=== PATIENT | male | born 2000 | race Caucasian/White ===

== ENCOUNTER 2024-02-29 13:17 | Emergency (ER) | payer MEDICAID ==
[2024-02-29 13:26] VITALS: PULSE 71
[2024-02-29 14:46] VITALS: BP 122/60
[2024-02-29] MEDS: Cyclobenzaprine 10 MG Tab PO ONE (15:04)
[2024-02-29] MEDS: Ketorolac 10 MG Tab PO ONE (15:06)
== END 2024-02-29 16:03 | disposition home or self-care (01) ==
LOC: JP.ED 13:17
DX: S39.012A Strain of muscle, fascia and tendon of lower back, initial encounter (principal); X50.9XXA Other and unspecified overexertion or strenuous movements or postures, initial encounter
CPT/HCPCS: 72100; 99283; A9270

== ENCOUNTER 2024-03-01 14:01 | Emergency (ER) | payer MEDICAID ==
[2024-03-01 14:07] VITALS: BP 112/57; PULSE 77
== END 2024-03-01 15:04 | disposition home or self-care (01) ==
LOC: JP.ED 14:01
DX: S39.012A Strain of muscle, fascia and tendon of lower back, initial encounter (principal); X58.XXXA Exposure to other specified factors, initial encounter
CPT/HCPCS: 99283